=== PATIENT | female | born 1980 | race Caucasian/White ===

== ENCOUNTER 2019-05-06 06:48 | Day surgery (SDC) | payer OTHER ==
[~2019-05-06 06:48] MED LIST: Dextrose 5%-0.45% NaCl 1,000 ML IV SCH; Midazolam 1 MG/ML 2 ML SDV ONE; Sodium Chloride 0.9% 10 ML Syringe FLUSH PRN; fentaNYL 100 MCG/2 ML SDV ONE
[2019-05-06] MEDS ORDERED: fentaNYL 100 MCG/2 ML SDV IV ONE ×3 (06:49→08:03)
[2019-05-06] MEDS ORDERED: Midazolam 1 MG/ML 2 ML SDV IV ONE ×3 (06:49→08:04)
--- NOTE | 2019-05-06 08:52 | OR ---
DATE: 05/06/2019 PROCEDURE: Esophagogastroduodenoscopy and multiple pinch biopsies. INSTRUMENT USED: [id number]-HQ190 Olympus video panendoscope. PREMEDICATIONS: No oral or topical anesthesia used. Fentanyl 100 mcg intravenous, Versed 2 mg intravenous. The procedure was done under pulse oximetry, BP recording, and programming engineer. INDICATION: The patient with longstanding difficulties of abdominal pain and bloating unexplained and not responsive to medical measures, on high-dose PPI. Esophagogastroduodenoscopy is performed for detection of any active erosive lesions, Rankin esophagus and/or malignancy also under consideration, H pylori status to be determined, small bowel biopsies to be obtained for celiac disease if indicated, endoscopic hemostasis therapy if needed. PROCEDURE IN DETAIL: The scope was passed with ease. Adequate visualization of the esophagus was made from proximal to distal areas. No upper esophageal lesions identified. No distal esophageal stricture. No uphill or downhill esophageal varices. No Kate-Mcneal tear. No evidence of erosive esophagitis by [place] criteria. No esophageal polyp or tumor mass identified. Z-line was seen at around 40 cm distal to the oral verge, configuration consistent with grade 1 by ZAP classification. No proximal gastric varices noted. Gastric fundus examination by retroflexion showed no polypoid lesions. No gastric ulcer, malignant mass, or vascular ectasia identified. Duodenal bulb showed no ulcer. Visualized second part of the duodenum was unremarkable. Multiple pinch biopsies, 4 in number, were taken from different areas of the second part of the duodenum and tissues were obtained from the duodenal bulb at 9 o'clock and 12 o'clock positions and sent for any histopathologic evidence of celiac disease. Multiple pinch biopsies were obtained from the gastric antrum and proximal body and sent for PyloriTek test for H pylori and histopathology. No bleeding was noted from any of the visualized areas at the completion of examination. Photographs were taken of duodenal bulb, gastric antrum, fundus, and distal esophagus. IMPRESSION: Normal study. The patient tolerated the procedure well. [facility] /[id number]
== END 2019-05-06 10:10 | disposition home or self-care (01) ==
LOC: DL.ENDO 06:48
PROVIDERS: ATTEND Internal Medicine Gastroenterology
DX: K31.89 Other diseases of stomach and duodenum (principal); J45.909 Unspecified asthma, uncomplicated; I34.1 Nonrheumatic mitral (valve) prolapse; Z90.89 Acquired absence of other organs; Z98.890 Other specified postprocedural states
CPT/HCPCS: 43239; 87077; J2250; J3010; J7042